=== PATIENT | female | born 1990 | race Caucasian/White ===

== ENCOUNTER 2023-12-04 08:00 | Outpatient (CLI) | payer OTHER | END 2023-12-04 23:59 | disposition home or self-care (01) | LOC: LAB.WC 08:00 | PROVIDERS: ATTEND Obstetrics & Gynecology | DX: Z36.85 Encounter for antenatal screening for Streptococcus B (principal) | CPT/HCPCS: 87081; 87181; 87797 ==

== ENCOUNTER 2023-12-07 18:09 | Inpatient (IN) | payer OTHER ==
[2023-12-08] MEDS: OXYTOCIN 10 UNIT/ML VIAL IM ONE (17:40)
[2023-12-08] MEDS ORDERED: KETOROLAC 30 MG/ML VIAL ONE (18:06)
[2023-12-08] MEDS ORDERED: OXYTOCIN 10 UNIT/ML VIAL ONE (18:19)
--- NOTE | 2023-12-08 18:33 | HISTORY & PHYSICAL EXAMINATION ---
Admit History - Visit Reason Visit Reason: Contractions, Other (delivery in ER driveway) - : 3 Parity: 1 Premature: 1 Care: positive: Other Risk/History: positive: High risk (AMA, one visit here last week, last prior care in August. cerclage in place, removed this week.) Complications This : positive: Other (no testing for GDM, but not high risk.) - Mother's Labs Mother's Blood Type: positive: A Mother's RH: positive: Negative GBS: positive: Group B Strep Positive (not treated) Rubella Status: positive: Immune Physical - Monitoring Heart Rate Baseline: no monitoring. baby delivered in car. - Presentation Presentation: positive: Vertex - Speculum Exam Speculum Exam Performed: positive: No Plan for Labor - Plan For Labor I expect patient to be DC'd or transferred within 96 hours.: Yes Plan for Labor: term at 37+ weeks. AYE 12/23. presents with delivery in car in front of ER. patient had first visit this week since August. no rhogam, no sugar test. will deliver placenta and then do routine pp care.
--- NOTE | 2023-12-08 18:47 | DELIVERY NOTE ---
Delivery Note - Labor Labor: positive: Spontaneous - Delivery Method Delivery Method: positive: Spontaneous vaginal delivery - Presentation Presentation: positive: Vertex - Nuchal Cord Nuchal Cord: positive: None - Anesthetic Anesthetic Type: - Amniotic Fluid Description Amniotic Fluid Description: positive: Clear - Episiotomy Type Episiotomy Type: positive: None - Laceration Laceration: positive: 1st degree (small first degree laceration, not repaired.) - Delivery Outcome Delivery Outcome: positive: Livebirth - : positive: Placed in direct skin contact with mother, Stimulated, Warmed, [place] used - Cord Cord: positive: 3 vessels - Placenta Placenta: positive: Intact, Spontaneous - Estimated Blood Loss Estimated Blood Loss (in cc): 100 - Post Delivery Events Post Delivery Events: positive: No post delivery events - Delivery Comments (Free Text/Narrative) Delivery Comments (Free Text/Narrative): patient presents and delivers in [facility], attended by [facility] RN Alix. Brought back to [facility] and I came in and evaluated her. Baby in her arms, vigorous. still attached to placenta. Cord clamped and cut. Placenta del ivered with gentle traction. Pitocin 10 units im. Uterus contracted well. Small perineal laceration that was not bleeding so I did not repair it. Blood loss seemed to be about 100 cc. Patient and baby resting well. Baby already to breast. Dr. Arenas also present to evaluate baby.
[2023-12-08 18:49] LABS: BASOPHILS % (AUTO) 0.2 %; EOSINOPHILS % (AUTO) 0.1 %; HCT - HEMATOCRIT 37.9 % (37.0-47.0); HGB - HEMOGLOBIN 12.8 g/dL (12.0-16.0); LYMPHOCYTES # (AUTO) 2.1 10^3/uL (1.5-3.5); LYMPHOCYTES % (AUTO) 14.4 %; MEAN CORPUSCULAR HEMOGLOBIN 27.9 pg (27.0-31.0); MEAN CORPUSCULAR HGB CONC 33.8 g/dL (32.0-36.0); MEAN CORPUSCULAR VOLUME 82.6 fL (81.0-99.0); MEAN PLATELET VOLUME 10.5 fL (7.9-10.8); MONOCYTES # (AUTO) 0.6 10^3/uL (0.0-1.0); MONOCYTES % (AUTO) 4.4 %; NEUTROPHILS # (AUTO) 11.6 10^3/uL (1.5-6.6); NEUTROPHILS % (AUTO) 80.3 %; PLT - PLATELET COUNT 196 10^3/uL (130-450); RED BLOOD COUNT 4.59 10^6/uL (4.20-5.40); RED CELL DISTRIBUTION WIDTH 13.7 % (12.0-15.0); WHITE BLOOD COUNT 14.4 x10^3/uL (4.8-10.8)
[2023-12-08] MEDS ORDERED: ACETAMINOPHEN 500 MG TABLET PO ONE (19:03)
[2023-12-08 19:06] LABS: ALBUMIN 3.5 g/dL (3.2-5.5); ALBUMIN/GLOBULIN RATIO 1.1 (1.0-2.2); BILIRUBIN,TOTAL 0.4 mg/dL (0.2-1.0); CALCIUM 9.5 mg/dL (8.5-10.3); CREATININE 0.5 mg/dL (0.6-1.3); POTASSIUM 3.7 mmol/L (3.5-4.5); TOTAL PROTEIN 6.8 g/dL (6.4-8.9)
[2023-12-08] MEDS: ACETAMINOPHEN 325 MG TABLET PO PRN (19:13)
[2023-12-08] MEDS: KETOROLAC 15 MG/ML VIAL IM STA (19:16)
[2023-12-08] MEDS: DOCUSATE SODIUM 100 MG CAPSULE PO PRN (19:43)
[2023-12-08] MEDS: oxyCODONE 5 MG TABLET PO PRN (19:43)
[2023-12-08 20:38] LABS: ESTIMATED AVERAGE GLUCOSE 103 mg/dL (70-100); HEMOGLOBIN A1c% 5.2 % (4.27-6.07)
[2023-12-09] MEDS: IBUPROFEN 600 MG TABLET PO SCH (00:33)
[2023-12-10] MEDS ORDERED: RHO(D) IMMUNE GLOBULIN 300 MCG SYRINGE IM ONE (07:00)
[2023-12-10 12:04] VITALS: O2SAT 98
--- NOTE | 2023-12-10 13:38 | DISCHARGE SUMMARY ---
Discharge Summary Admit Date: 12/08/23 Discharge Date: 12/10/23 Discharging Provider: Robbin Don MD Condition at Discharge: Good Discharge Disposition: 01 Home, Self Care - HOSPITAL COURSE Hospital Course: Admission Diagnosis: - SIUP at term - H/o cervical incompetence - S/p cerclage removal this - GBS + - Rh neg - Rubella immune - Varicella pending - Hep B pending Discharge Diagnosis: Same, delivered Procedures: in car in front of ER, 1st degree not repaired Hospital Course: Ania is a 33 yo who presented at term, delivered in her car in front of ER. Admitted and placenta delivered. EBL approximately 100cc. course uncomplicated. Ania has recently moved to area from [place], had been seen in our clinic for first visit the week prior where cerclage was removed. She had not received care in prior ~ 3 months after moving from [place] to [place] in August. She is not yet settled and with many of her things are in storage. Community health worker, Barbara, to see patient today prior to discharge to discuss available community resources. Condition on Discharge: SUBJECTIVE: day 2s/p The patient feels well overall. Denies pain. The baby is doing well at bedside. She is and supplementing with formula. She is ambulating well, tolerating normal diet, urinating without difficulty. Lochia is reported as light. OBJECTIVE: Vital signs reviewed GENERAL: NAD CHEST: non labored respirations ABD: soft, non tender, fundus firm EXT: no lower extremity edema; No evidence of DVT LAB & IMAGING STUDIES: See below PLAN: Plan for discharge home with follow up in clinic in 1 week, discussed virtual visit OK. Varicella, hepBsAg, and RPR pending on discharge. Our clinic will follow up as needed pending results. Reviewed home care instructions and medications. Patient counseled regarding signs and symptoms of infection, excessive bleeding, vaginal rest and activity restrictions. Contraceptive plans to be formalized at visit. - ALLERGIES Allergies/Adverse Reactions: Allergies Allergy/AdvReac Type Severity Reaction Status Date / Time No Known Drug Allergies Allergy Verified 12/08/23 18:59 - LABS Result Diagrams: 12/08/23 18:40 12/08/23 18:40
[2023-12-10] MEDS: RHO(D) IMMUNE GLOBULIN 300 MCG SYRINGE IM ONE (19:37)
[2023-12-10 20:04] VITALS: BP 129/75
--- NOTE | 2023-12-10 21:30 | Labor Flowsheet ---
Labor Flowsheet Datetime Report Generated by CPN: 12/10/2023 21:29 Datetime: 12/10/2023 19:59 VITAL SIGNS NBP Sys/Maci/Mean (mmHg): 129 : 75 : 86 Pulse: 65 Datetime: 12/08/2023 19:41 Stage of : Datetime: 12/08/2023 18:15 PAIN Pain Scale: 8 Pain Presence: Intermittent Pain Type: Cramping; Contraction Pain Location: Abdomen Pain Goal: 2 Pain Relief Measures: Pain Medication Given; Comfort Measures VAGINAL EXAM Membranes Ruptured Date/Time: 12/08/2023 17:24 Membranes Rupture Method: Spontaneous Amniotic Fluid Color: Clear
[2023-12-11 03:10] LABS: RPR Non Reactive (Non Reactive)
[2023-12-11 06:10] LABS: HBsAG SCREEN Negative (Negative)
== END 2023-12-10 21:20 | disposition home or self-care (01) | DRG 776 ==
LOC: WFO 18:09 → FBP 12-08 17:25 → WFO 12-08 18:01
PROVIDERS: ADMIT Obstetrics & Gynecology; ATTEND Obstetrics & Gynecology
PROC: 10E0XZZ Delivery of Products of Conception, External Approach (ICD-10-PCS; principal; 2023-12-08)
DX: Z39.0 Encounter for care and examination of mother immediately after delivery (principal)
CPT/HCPCS: 36415; 59409; 80053; 83033; 83036; 85025; 86592; 86787; 86850; 86900; 86901; 87340; A9270